=== PATIENT | male | born 1965 | race Caucasian/White ===

== ENCOUNTER → 2017-02-02 | Day surgery (SDC) | payer MEDICARE, OTHER | LOC: RAD 13:21 | PROVIDERS: ATTEND Physician Assistant | PROC: BP08ZZZ Plain Radiography of Right Shoulder (ICD-10-PCS; principal; 2017-02-02) | DX: M25.511 Pain in right shoulder (principal) | CPT/HCPCS: 73222; 73040; 77002; A9576 ==